=== PATIENT | male | born 1950 | race Caucasian/White ===

== ENCOUNTER 2020-01-07 05:19 | Day surgery (SDC) | payer OTHER, BC ==
[2020-01-06 09:07] VITALS: BMI 29.7
[2020-01-07] MEDS ORDERED: EPINEPHrine 1:10,000 (P-F SYR) 1 MG/10 ML DISP.SYRIN ONE (10:05)
[2020-01-07 10:43] VITALS: TEMP 97.7
[2020-01-07 10:59] VITALS: PULSE 58
[2020-01-07 11:31] VITALS: BP 152/86
--- NOTE | 2020-01-08 15:33 | PATH ---
Surgical Pathology Report Patient Name: LINDA COREY [facility]. Rec. #: [id number] /Age/Gender: 1950 (Age: 69) / M Account: [id number] Location: U-ENDOSCOPY Taken: 01/07/2020 Received: 01/07/2020 Reported: 01/08/2020 Physicians: Aki Lozano D.O. Specimen(s) Received RECTOSIGMOID COLON, 12 CM, HOT SNARE POLYPECTOMY Clinical History Screening Postoperative diagnosis: Colon polyp Final Diagnosis RECTOSIGMOID COLON, 12 CM, HOT SNARE POLYPECTOMY: TUBULOVILLOUS ADENOMA WITH FOCAL HIGH GRADE DYSPLASIA. SURGICAL MARGIN IS NEGATIVE FOR DYSPLASIA. Comment: Case seen in intradepartmental review with consensus on diagnosis. Findings discussed with Dr. Lozano, 01/08/2020. Electronically Signed Adamaris Hernandez M.D. Gross Description Received in formalin, labeled "hot snare polypectomy rectosigmoid colon at 12 cm" is pedunculated ramírez polyp measuring 1.5 cm in greatest dimension. The base of the polyp is inked in blue. The specimen is serially sectioned and entirely submitted in one cassette. MLSZ/01/08/2020 sandemetria/01/08/2020
== END 2020-01-07 11:46 | disposition home or self-care (01) ==
LOC: JASU-ENDO 05:19 → MERGE 10:00 → JASU-ENDO 11:46
PROVIDERS: ATTEND Internal Medicine Gastroenterology
PROC: 3E0H8KZ Introduction of Other Diagnostic Substance into Lower GI, Via Natural or Artificial Opening Endoscopic (ICD-10-PCS; 2020-01-07)
PROC: 0DBN8ZX Excision of Sigmoid Colon, Via Natural or Artificial Opening Endoscopic, Diagnostic (ICD-10-PCS; principal; 2020-01-07 09:54)
DX: Z12.11 Encounter for screening for malignant neoplasm of colon (principal); D12.7 Benign neoplasm of rectosigmoid junction; K64.8 Other hemorrhoids; I10 Essential (primary) hypertension; R73.03 Prediabetes; E06.3 Autoimmune thyroiditis; E78.2 Mixed hyperlipidemia
CPT/HCPCS: 88305-TC

== ENCOUNTER 2020-05-12 04:29 | Day surgery (SDC) | payer OTHER, BC, MEDICARE ==
[2020-05-10 12:26] VITALS: BMI 31.9
[2020-05-12 12:15] VITALS: TEMP 97.8
[2020-05-12 12:47] VITALS: BP 136/80; PULSE 68
== END 2020-05-12 12:46 | disposition home or self-care (01) ==
LOC: JASU-ENDO 04:29
PROVIDERS: ATTEND Internal Medicine Gastroenterology
PROC: 0DBN8ZX Excision of Sigmoid Colon, Via Natural or Artificial Opening Endoscopic, Diagnostic (ICD-10-PCS; principal; 2020-05-12 11:36)
DX: K63.5 Polyp of colon (principal); K64.8 Other hemorrhoids; Z86.010 Personal history of colon polyps
CPT/HCPCS: 82962; 88305-TC

== ENCOUNTER 2020-12-29 17:08 | Inpatient (IN) | payer OTHER, BC, MEDICARE ==
[2020-12-29] MEDS ORDERED: ONDANSETRON 4 MG/2 ML VIAL IVPUSH ONE (18:35)
[2020-12-29] MEDS ORDERED: SODIUM CHLORIDE 1,000 ML IV STA (18:35)
[2020-12-29] MEDS ORDERED: morphine CARPU-JECT 4 MG/1 ML DISP.SYRIN IVPUSH ONE (18:35)
[2020-12-29] MEDS ORDERED: ONDANSETRON 4 MG/2 ML VIAL ONE (19:41)
[2020-12-29] MEDS ORDERED: morphine SULFATE 4 MG/ML VIAL ONE (19:41)
[2020-12-29 19:48] LABS: BASO % 1.2 % (0-2.0); EOS % 1.7 % (0-4.5); HEMATOCRIT 40.9 % (35.4-49); HEMOGLOBIN 14.3 GM/dL (11.7-16.9); LYMPH % 19.7 % (8-40); MCH 31.7 pg (25.7-33.7); MEAN CELL VOLUME 90.7 fl (80-96); MEAN PLT VOLUME 7.2 fl (7.5-11.1); MONO % 8.1 % (3.8-10.2); NEUT % 69.3 % (42.8-82.8); PLATELET COUNT 343 10^3/uL (134-434); RDW 14.1 % (11.9-15.9); WHITE BLOOD COUNT 12.7 K/mm3 (4.0-10.0)
[2020-12-29 19:54] LABS: INR 1.02 (0.83-1.09); PROTHROMBIN TIME (PATIENT) 12.6 SEC (9.7-13.0)
[2020-12-29 19:57] LABS: ACTIVATED PTT 26.5 SECONDS (25.2-36.5)
[2020-12-29 20:20] LABS: CHLORIDE 92 mmol/L (98-107); SODIUM 131 mmol/L (136-145)
[2020-12-29 20:22] LABS: ALBUMIN 3.8 g/dl (3.4-5.0); ANION GAP 13 MMOL/L (8-16); BLOOD UREA NITROGEN 30.7 mg/dL (7-18); CALCIUM 9.8 mg/dL (8.5-10.1); CO2 26 mmol/L (21-32); GLUCOSE,RANDOM 107 mg/dL (74-106); LIPASE 246 U/L (73-393)
[2020-12-29 20:25] LABS: CREATININE 1.3 mg/dL (0.55-1.3); SGOT/AST 33 U/L (15-37); SGPT/ALT 30 U/L (13-61)
[2020-12-29 20:27] LABS: BILIRUBIN,TOTAL 1.2 mg/dL (0.2-1)
[2020-12-29 20:28] LABS: ALK PHOS 86 U/L (45-117)
[2020-12-29 21:21] LABS: EPI CELLS 2 /uL (0-25.1); HYALINE CASTS 2 /uL (0-3.1); PH,URINE 5.5 (5.0-8.0); URINE APPEARANCE CLEAR; URINE BACTERIA 2 /uL (0-1359); URINE BILIRUBIN NEGATIVE (NEGATIVE); URINE COLOR DK YELLOW; URINE GLUCOSE (UA) NEGATIVE (NEGATIVE); URINE KETONE 1+ (NEGATIVE); URINE LEUK ESTERASE TRACE (NEGATIVE); URINE NITRITE NEGATIVE (NEGATIVE); URINE PROTEIN NEGATIVE (NEGATIVE); URINE RBC 12 /uL (0-23.9); URINE WBC 6 /uL (0-25.8)
[2020-12-29] MEDS ORDERED: POTASSIUM CHLORIDE 20 MEQ PREMIX IVPB 100 ML IVPB SCH (23:30)
[2020-12-29 23:41] LABS: MAGNESIUM 1.8 mg/dL (1.8-2.4)
[2020-12-29 23:45] LABS: PHOSPHOROUS 2.8 mg/dL (2.5-4.9)
[2020-12-29 23:46] LABS: LDH 258 U/L (87-246)
[2020-12-30] MEDS ORDERED: LACTATED RINGERS SOLUTION 1,000 ML/1,000 ML INFUS.BAG IV ONE (01:06)
[2020-12-30] MEDS: KCL 10 MEQ IVPB 10 MEQ/100 ML INFUS.BAG IVPB SCH ×2 (01:48→02:47)
[2020-12-30 02:18] VITALS: BMI 23.6
[2020-12-30] MEDS ORDERED: MAGNESIUM SULFATE IN WATER 2 GM/50 ML IVPB IVPB ONE (04:19)
[2020-12-30] MEDS ORDERED: EPINEPHRINE IM PRN (04:23)
[2020-12-30] MEDS ORDERED: KCL 10 MEQ IVPB 10 MEQ/100 ML INFUS.BAG IVPB SCH ×2 (04:30→05:30)
[2020-12-30 05:12] LABS: MAGNESIUM 1.3 mg/dL (1.8-2.4)
[2020-12-30 05:13] LABS: CREATININE 0.9 mg/dL (0.55-1.3)
[2020-12-30 05:18] LABS: BILIRUBIN,TOTAL 0.7 mg/dL (0.2-1)
[2020-12-30 05:28] LABS: ALBUMIN 2.8 g/dl (3.4-5.0); CALCIUM 8.2 mg/dL (8.5-10.1)
[2020-12-30] MEDS ORDERED: POTASSIUM CHLORIDE ORAL LIQUID 20 MEQ/15 ML PO ONE (05:31)
[2020-12-30] MEDS: INSULIN SLIDING SCALE (NOVOLOG) 1 VIAL SQ SCH ×4 (06:27→22:13)
[2020-12-30] MEDS: LEVOTHYROXINE NA 150 MCG TABLET PO SCH (06:28)
[2020-12-30 07:31] LABS: BASO % 0.3 % (0-2.0); EOS % 1.1 % (0-4.5); HEMATOCRIT 33.8 % (35.4-49); HEMOGLOBIN 11.8 GM/dL (11.7-16.9); LYMPH % 16.5 % (8-40); MCH 31.6 pg (25.7-33.7); MCHC 34.9 g/dl (32.0-35.9); MEAN CELL VOLUME 90.4 fl (80-96); MEAN PLT VOLUME 7.3 fl (7.5-11.1); MONO % 6.3 % (3.8-10.2); NEUT % 75.8 % (42.8-82.8); PLATELET COUNT 236 10^3/uL (134-434); RBC 3.74 M/mm3 (4.00-5.60); RDW 14.3 % (11.9-15.9); WHITE BLOOD COUNT 7.6 K/mm3 (4.0-10.0)
[2020-12-30] MEDS ORDERED: cefTRIAXone SODIUM 1 GM VIAL ONE (08:13)
[2020-12-30] MEDS ORDERED: DEXTROSE 5%-WATER - 50 ML IVPB ONE (08:13)
[2020-12-30] MEDS ORDERED: MAGNESIUM SULF 50% (8.12 MEQ/2 ML-1 GM VIAL) IVPB ONE (09:00)
[2020-12-30] MEDS ORDERED: ATENOLOL 50 MG TABLET (FP) PO SCH (10:00)
[2020-12-30] MEDS ORDERED: HYDROCHLOROTHIAZIDE 12.5 MG CAPSULE (FP) PO SCH (10:00)
[2020-12-30] MEDS ORDERED: ENOXAPARIN NA (PORCINE) 40 MG/0.4 ML DISP.SYRIN SQ SCH (10:00)
[2020-12-30] MEDS ORDERED: APIXABAN 5 MG TABLET PO SCH ×2 (10:00→22:00)
[2020-12-30] MEDS ORDERED: amLODIPine BESYLATE 5 MG TABLET (FP) PO SCH (10:00)
[2020-12-30] MEDS ORDERED: CHLORTHALIDONE 25 MG TABLET PO SCH (10:00)
[2020-12-30] MEDS: CEFTRIAXONE 1 GM in DEXTROSE 5%-WATER - 50 ML IVPB SCH (10:50)
[2020-12-30 17:04] LABS: BLOOD UREA NITROGEN 17.9 mg/dL (7-18); CALCIUM 7.9 mg/dL (8.5-10.1)
[2020-12-30 17:08] LABS: CREATININE 0.8 mg/dL (0.55-1.3)
[2020-12-30] MEDS ORDERED: ACETAMINOPHEN 1000 MG/100 ML VIAL (NON FORMULARY) IVPB ONE (20:49)
[2020-12-30] MEDS ORDERED: ROSUVASTATIN CA 5 MG TABLET (FP) PO SCH (22:00)
[2020-12-30] MEDS: PANTOPRAZOLE 40 MG TABLET PO SCH (22:13)
[2020-12-30] MEDS: METOPROLOL TARTRATE 50 MG TABLET (FP) PO SCH (22:13)
[2020-12-31] MEDS: INSULIN SLIDING SCALE (NOVOLOG) 1 VIAL SQ SCH ×4 (06:44→21:01)
[2020-12-31] MEDS: LEVOTHYROXINE NA 150 MCG TABLET PO SCH (06:45)
[2020-12-31 08:30] LABS: HEMATOCRIT 35.3 % (35.4-49); HEMOGLOBIN 12.1 GM/dL (11.7-16.9); MCH 31.5 pg (25.7-33.7); MCHC 34.4 g/dl (32.0-35.9); MEAN CELL VOLUME 91.5 fl (80-96); MEAN PLT VOLUME 6.9 fl (7.5-11.1); PLATELET COUNT 275 10^3/uL (134-434); RBC 3.86 M/mm3 (4.00-5.60); RDW 14.5 % (11.9-15.9); WHITE BLOOD COUNT 12.4 K/mm3 (4.0-10.0)
[2020-12-31] MEDS ORDERED: cefTRIAXone SODIUM 1 GM VIAL ONE (08:51)
[2020-12-31] MEDS ORDERED: DEXTROSE 5%-WATER - 50 ML IVPB ONE (08:51)
[2020-12-31] MEDS: METOPROLOL TARTRATE 50 MG TABLET (FP) PO SCH ×2 (09:00→21:00)
[2020-12-31] MEDS: CEFTRIAXONE 1 GM in DEXTROSE 5%-WATER - 50 ML IVPB SCH (09:00)
[2020-12-31] MEDS: PANTOPRAZOLE 40 MG TABLET PO SCH ×2 (09:00→21:02)
[2020-12-31] MEDS: LOSARTAN POTASSIUM 50 MG TABLET PO SCH (09:00)
[2020-12-31 09:02] LABS: ALBUMIN 2.3 g/dl (3.4-5.0); BLOOD UREA NITROGEN 14.8 mg/dL (7-18); CREATININE 0.7 mg/dL (0.55-1.3); MAGNESIUM 1.4 mg/dL (1.8-2.4)
[2020-12-31 09:03] LABS: BILIRUBIN,TOTAL 0.6 mg/dL (0.2-1); TOT PROT 5.5 g/dl (6.4-8.2)
[2020-12-31 09:04] LABS: CALCIUM 8.2 mg/dL (8.5-10.1)
[2020-12-31 09:05] LABS: PHOSPHOROUS 2.5 mg/dL (2.5-4.9)
[2020-12-31] MEDS ORDERED: MAGNESIUM SULF 50% (8.12 MEQ/2 ML-1 GM VIAL) IVPB ONE (20:33)
[2020-12-31] MEDS ORDERED: METOCLOPRAMIDE HCL INJECTION 10 MG/2 ML VIAL IVPUSH PRN (20:52)
[2020-12-31] MEDS: ENOXAPARIN NA (PORCINE) 80 MG/0.8 ML DISP.SYRIN SQ SCH (21:00)
[2021-01-01] MEDS: INSULIN SLIDING SCALE (NOVOLOG) 1 VIAL SQ SCH ×3 (06:22→17:20)
[2021-01-01] MEDS ORDERED: LEVOTHYROXINE NA 150 MCG TABLET PO SCH (07:00)
[2021-01-01] MEDS ORDERED: cefTRIAXone SODIUM 1 GM VIAL ONE (09:10)
[2021-01-01] MEDS ORDERED: DEXTROSE 5%-WATER - 50 ML IVPB ONE (09:10)
[2021-01-01 09:34] LABS: HEMOGLOBIN 12.9 GM/dL (11.7-16.9); MCH 31.7 pg (25.7-33.7); MCHC 34.8 g/dl (32.0-35.9); MEAN CELL VOLUME 91.3 fl (80-96); MEAN PLT VOLUME 7.5 fl (7.5-11.1); PLATELET COUNT 382 10^3/uL (134-434); RBC 4.05 M/mm3 (4.00-5.60); RDW 14.9 % (11.9-15.9); WHITE BLOOD COUNT 11.6 K/mm3 (4.0-10.0)
[2021-01-01] MEDS: LOSARTAN POTASSIUM 50 MG TABLET PO SCH (09:39)
[2021-01-01] MEDS: METOPROLOL TARTRATE 50 MG TABLET (FP) PO SCH (09:39)
[2021-01-01] MEDS: ENOXAPARIN NA (PORCINE) 80 MG/0.8 ML DISP.SYRIN SQ SCH (09:39)
[2021-01-01] MEDS: PANTOPRAZOLE 40 MG TABLET PO SCH (09:39)
[2021-01-01] MEDS ORDERED: LEVOTHYROXINE SODIUM 100 MCG VIAL IVPUSH SCH (10:00)
[2021-01-01] MEDS ORDERED: CEFTRIAXONE 1 GM in DEXTROSE 5%-WATER - 50 ML IVPB SCH (10:00)
[2021-01-01 10:08] LABS: ALBUMIN 2.3 g/dl (3.4-5.0); BLOOD UREA NITROGEN 32.5 mg/dL (7-18)
[2021-01-01 10:09] LABS: BILIRUBIN,TOTAL 0.9 mg/dL (0.2-1); TOT PROT 5.6 g/dl (6.4-8.2)
[2021-01-01 10:10] LABS: MAGNESIUM 2.6 mg/dL (1.8-2.4)
[2021-01-01 10:11] LABS: CALCIUM 8.4 mg/dL (8.5-10.1); CREATININE 1.5 mg/dL (0.55-1.3); PHOSPHOROUS 4.9 mg/dL (2.5-4.9)
[2021-01-01] MEDS ORDERED: DEXTROSE 5%-0.45% SALINE 1,000 ML IV SCH (12:00)
[2021-01-01] MEDS ORDERED: HYDROmorphone HCl 2 MG/ML VIAL IVPB PRN (12:03)
[2021-01-01 15:09] VITALS: BP 97/56; PULSE 98; TEMP 97.6
[2021-01-01] MEDS ORDERED: PANTOPRAZOLE SODIUM 40 MG VIAL IVPUSH SCH (22:00)
== END 2021-01-01 22:00 | disposition expired | DRG 436 ==
LOC: JER 17:08 → JERBED 23:09 → J4W 12-30 01:39 → J8W 12-31 14:40 → JICU 01-01 19:54
PROVIDERS: ADMIT Internal Medicine; ATTEND Internal Medicine
PROC: 5A19054 Respiratory Ventilation, Single, Nonmechanical (ICD-10-PCS; principal; 2021-01-01)
PROC: 5A12012 Performance of Cardiac Output, Single, Manual (ICD-10-PCS; 2021-01-01)
PROC: 0BH17EZ Insertion of Endotracheal Airway into Trachea, Via Natural or Artificial Opening (ICD-10-PCS; 2021-01-01)
DX: C25.9 Malignant neoplasm of pancreas, unspecified (principal); F84.0 Autistic disorder; E87.1 Hypo-osmolality and hyponatremia; E78.5 Hyperlipidemia, unspecified; E03.9 Hypothyroidism, unspecified; R11.2 Nausea with vomiting, unspecified; E11.9 Type 2 diabetes mellitus without complications; I48.91 Unspecified atrial fibrillation; D12.5 Benign neoplasm of sigmoid colon; E05.00 Thyrotoxicosis with diffuse goiter without thyrotoxic crisis or storm; I10 Essential (primary) hypertension; E05.90 Thyrotoxicosis, unspecified without thyrotoxic crisis or storm; I45.10 Unspecified right bundle-branch block; E87.6 Hypokalemia; D72.829 Elevated white blood cell count, unspecified; R68.81 Early satiety; I46.9 Cardiac arrest, cause unspecified; K64.4 Residual hemorrhoidal skin tags; R63.4 Abnormal weight loss; Z68.23 Body mass index [BMI] 23.0-23.9, adult; Z86.010 Personal history of colon polyps
CPT/HCPCS: 36415; 71046-TC-FY; 74177-TC; 80048; 80053; 80061; 81003; 82105; 82272; 82378; 82550; 82553; 82962; 83036; 83605; 83615; 83690; 83735; 84100; 84153; 84439; 84443; 84484; 85025; 85027; 85610; 85730; 86301; 87086; 93005; 93010; 93306-TC; 99285-25; C9803; J0131; Q9967; U0003; U0005